=== PATIENT | female | born 1945 | race Caucasian/White ===

== ENCOUNTER 2017-01-18 14:25 | Inpatient (IN) | payer OTHER ==
[~2017-01-18] VITALS: Ht 170.2 cm; Wt 81.0 kg
[~2017-01-18 14:25] MED LIST: ALTACE10 MG PO; Aldactone PO; COUMADIN,JANTOVE2 MG PO; FLUOXETINE HCL10 MG PO; FUROSEMIDE40 MG PO; LIPITOR40 MG PO; Lopressor PO; METOPROLOL SUCC50 MG PO; Prozac PO; SPIRONOLACTONE MC
[2017-01-18 15:28] LABS: HEMATOCRIT 36.5 % (36.0-46.0); MCH 32.5 PG (29.0-34.0); MCHC 32.9 G/DL (30.0-36.0); MCV 98.9 FL (83-99); PLATELET COUNT 184 K/uL (156-360); RBC DIS.WIDTH-CV 13.4 % (11.8-14.6); RBC DIS.WIDTH-SD 48.9 % (39-53); RED BLOOD COUNT 3.69 M/uL (3.80-5.20); WHITE BLOOD COUNT 8.2 K/uL (4.1-10.2)
[2017-01-18 15:41] LABS: CHLORIDE 109 mEq/L (99-109); POTASSIUM 4.7 mEq/L (3.7-5.4); SODIUM 142 mEq/L (136-147)
[2017-01-18 15:43] LABS: GLUCOSE 104 mg/dL (70-99)
[2017-01-18 15:45] LABS: ANION GAP 6 MEQ/L (2-14)
[2017-01-18 15:47] LABS: GFR ESTIMATE (CALCULATED) 47 mL/min/
[2017-01-18 15:48] LABS: UREA NITROGEN (BUN) 19 mg/dL (9-23)
[2017-01-18 15:53] LABS: TROP-I INTERPRETATION NEGATIVE; TROPONIN-I < 0.01 ng/mL (0.0-0.30)
[2017-01-18] MEDS ORDERED: XARELTO15 MG PO (19:12)
[2017-01-18] MEDS ORDERED: LOPRESSOR50 MG PO (19:17)
[2017-01-18] MEDS ORDERED: PROZAC10 MG PO (19:17)
[2017-01-18] MEDS ORDERED: ALTACE2.5 MG PO (19:18)
[2017-01-18] MEDS ORDERED: MAGNESIUM250 MG PO (19:19)
[2017-01-18] MEDS ORDERED: CENTRUM SILVER1 EAC3 PO (19:19)
[2017-01-18] MEDS ORDERED: ALDACTONE25 MG PO (19:19)
[2017-01-18] MEDS ORDERED: DORZOLAMIDE-TIM10 ML BOTH EYES (19:20)
[2017-01-18 21:49] LABS: ADD MIUA? YES; BILIRUBIN NEGATIVE; BLOOD MODERATE; COLOR YELLOW ((YELLOW)); GLUCOSE (STRIP) NEGATIVE; KETONES NEGATIVE; LEUKOCYTES NEGATIVE; NITRITE NEGATIVE; PROTEIN (STRIP) 30; UROBILINOGEN 0.2 MG/DL (0.2-1.0)
[2017-01-18 22:13] LABS: BACTERIA NONE SEEN /HPF; EPITHELIAL CELLS RARE /HPF; MUCUS NONE SEEN /LPF; RED BLOOD CELLS TNTC /HPF (0-5); UCUL ADDED? NO; WHITE BLOOD CELLS 0-5 /HPF (0-5)
[2017-01-18 23:50] VITALS: BP 134/68
[2017-01-19 03:22] VITALS: BP 137/98
[2017-01-19 08:00] VITALS: BP 150/91
[2017-01-19 08:45] LABS: ANION GAP 10 MEQ/L (2-14); CHLORIDE 104 MEQ/L (99-109); SAMPLE HEMOLYSIS CHECK 0; SAMPLE ICTERIC CHECK 0; SAMPLE LIPEMIA CHECK 0; SODIUM 141 MEQ/L (136-147)
[2017-01-19 08:46] LABS: POTASSIUM 3.7 MEQ/L (3.7-5.4)
[2017-01-19 08:51] LABS: GFR ESTIMATE (CALCULATED) 52 mL/min/; GLUCOSE 99 mg/dL (70-99); UREA NITROGEN (BUN) 20 mg/dL (9-23)
[2017-01-19 08:59] LABS: TROP-I INTERPRETATION NEGATIVE; TROPONIN-I 0.06 ng/mL (0.0-0.30)
[2017-01-19 12:00] VITALS: BP 135/77
[2017-01-19 17:03] VITALS: BP 124/82
[2017-01-19 19:29] VITALS: BP 124/91
[2017-01-19 23:32] VITALS: BP 131/74
[2017-01-20 04:50] VITALS: BP 112/52
[2017-01-20 06:49] LABS: ANION GAP 11 MEQ/L (2-14); CHLORIDE 102 MEQ/L (99-109); GFR ESTIMATE (CALCULATED) 43 mL/min/; GLUCOSE 99 mg/dL (70-99); POTASSIUM 4.3 MEQ/L (3.7-5.4); SAMPLE HEMOLYSIS CHECK 0; SAMPLE ICTERIC CHECK 0; SAMPLE LIPEMIA CHECK 0; SODIUM 142 MEQ/L (136-147); UREA NITROGEN (BUN) 29 mg/dL (9-23)
[2017-01-20 07:06] VITALS: BP 137/60
[2017-01-20 10:58] VITALS: BP 117/56
[2017-01-20] MEDS ORDERED: FUROSEMIDE40 MG PO (12:22)
== END 2017-01-20 13:30 | disposition home health service (06) | DRG 291 ==
LOC: EME 14:25 → 4EAST 22:05 → EDOF 22:05 → 4EAST 23:26
PROVIDERS: Physician Assistant; Student in an Organized Health Care Education/Training Program
DX: I13.0 Hypertensive heart and chronic kidney disease with heart failure and stage 1 through stage 4 chronic kidney disease, or unspecified chronic kidney disease (principal); I50.33 Acute on chronic diastolic (congestive) heart failure; N18.3 Chronic kidney disease, stage 3 (moderate); I48.2 Chronic atrial fibrillation; G47.33 Obstructive sleep apnea (adult) (pediatric); E78.5 Hyperlipidemia, unspecified; I27.2 Other secondary pulmonary hypertension; I08.1 Rheumatic disorders of both mitral and tricuspid valves; F32.9 Major depressive disorder, single episode, unspecified; M19.90 Unspecified osteoarthritis, unspecified site; H40.9 Unspecified glaucoma; Z66 Do not resuscitate; Z86.73 Personal history of transient ischemic attack (TIA), and cerebral infarction without residual deficits; Z79.01 Long term (current) use of anticoagulants
CPT/HCPCS: 71020; 71275; 80048; 81003; 83605; 83880; 84484; 85027; 87040; 93005; 93306; 99281; 99285; J0456; J0696; J1940; J7030; J7050